=== PATIENT | male | born 1995 | race Two or more races ===

== ENCOUNTER 2024-03-30 17:48 | Emergency (ER) | payer MEDICAID, SELFPAY ==
[2024-03-30 17:54] VITALS: BP 128/89; PULSE 98; TEMP 36.5; O2SAT 99; BMI 36.0
--- NOTE | 2024-03-30 18:13 | ED.EYEPROB1 ---
HPI - Eye Problem General Chief complaint: Eye Problems Stated complaint: Eye problem Time Seen by Provider: 03/30/24 17:55 Source: patient Mode of arrival: walk-in History of Present Illness HPI Narrative: Patient is a 28-year-old male who presents to the emergency department to be evaluated for a spot on the conjunctive of his right eye. He states the spot has been there for a year. He has no visual changes or pain. No swelling. No drainage. He came in to be evaluated because his girlfriend is also being evaluated for unrelated complaints and she wanted him to have it looked at in case it was cancer of the eyeball. Related Data Allergies Allergy/AdvReac Type Severity Reaction Status Date / Time No Known Drug Allergies Allergy Verified 03/30/24 17:54 Review of Systems ROS Constitutional Denies: fever or chills Eyes Denies: change in vision Ears, nose, mouth, and throat Denies: throat pain or nasal congestion Cardiovascular Denies: chest pain Respiratory Denies: shortness of breath or cough Gastrointestinal Denies: nausea or vomiting Neurological Denies: headache, numbness in extremities or weakness in extremities Exam Narrative Exam Narrative: Gen.: Awake, alert, in no distress Head: Normocephalic, atraumatic ENT: Moist mucous membranes, right eye with 3 mm brown discoloration to the conjunctiva. No redness, mass, drainage or crusting. No extension of the area to the iris or pupil Respiratory: No respiratory distress Extremities: Moves extremities equally Psych: Normal mood and affect Neuro: No focal neuro deficit Skin: Warm, dry, intact Constitutional Vital Signs, click to edit/add: Last Vital Signs Temp 97.7 F 03/30/24 17:54 Pulse 98 H 03/30/24 17:54 Resp 16 03/30/24 17:54 BP 128/89 03/30/24 17:54 Pulse Ox 99 03/30/24 17:54 Course Vital Signs Vital signs: Vital Signs Temperature 97.7 F 03/30/24 17:54 Pulse Rate 98 H 03/30/24 17:54 Respiratory Rate 16 03/30/24 17:54 Blood Pressure 128/89 03/30/24 17:54 Pulse Oximetry 99 03/30/24 17:54 Temperature 97.7 F 03/30/24 17:54 Pulse Rate 98 H 07/31/24 17:54 Respiratory Rate 16 03/30/24 17:54 Blood Pressure 128/89 03/30/24 17:54 Pulse Oximetry 99 03/30/24 17:54 MDM - Eye Problem MDM Narrative Medical decision making narrative: Exam is consistent with nevus of the right conjunctiva. Follow-up with optometry and return to the ER if symptoms change or worsen. SUPERVISED APC VISIT, PHYSICIAN ATTESTATION: Based on the medical record the care appears appropriate. ? Medical Records Attestation: I reviewed the patient's medical records. Discharge Plan Discharge Stand Alone Forms: Portal Instructions Chief Complaint: Eye Problems Clinical Impression: Nevus of right conjunctiva Patient Disposition: Home, Self-Care Time of Disposition Decision: 18:12 Condition: Good Print Language: Macedonian Referrals: FORREST ROSA [Physician] - 1 week Physician,Non-Staff, MD [Primary Care Provider] - 1 week
== END 2024-03-30 18:26 | disposition home or self-care (01) ==
PROVIDERS: Emergency Provider Student in an Organized Health Care Education/Training Program
DX: D31.01 Benign neoplasm of right conjunctiva (principal)
CPT/HCPCS: 99281

== ENCOUNTER 2024-07-27 16:56 | Emergency (ER) | payer MEDICAID, SELFPAY ==
[2024-07-27 17:01] VITALS: BP 156/88; PULSE 87; TEMP 36.7; O2SAT 97; BMI 37.1
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
--- NOTE | 2024-07-27 17:26 | ED_ITS ---
HPI - Male Genitourinary General Chief complaint: Urogenital-Male Stated complaint: std testing Time Seen by Provider: 07/27/24 16:57 Source: patient Mode of arrival: walk-in History of Present Illness HPI Narrative: 28-year-old male presents to the emergency department for concern of an STD. His girlfriend apparently has trichomonas and she is being treated. He has no symptoms at all. No dysuria or drainage. No genital area skin lesions. Related Data Previous Rx's ?Medication ?Instructions ?Recorded metronidazole 250 mg tablet 250 mg PO TID 7 days #21 tabs 07/27/24 Allergies Allergy/AdvReac Type Severity Reaction Status Date / Time No Known Drug Allergies Allergy Verified 03/30/24 17:54 Review of Systems ROS Narrative A ten point review of systems is negative except as noted above. Exam Narrative Exam Narrative: Nurses note and vital signs reviewed and patient is not hypoxic. General: The patient appears well and in no apparent distress. Patient is resting comfortably on cart. Skin: Warm, dry, no pallor noted. There is no rash noted. Head: Normocephalic, atraumatic Eye: Normal conjunctiva, no drainage Ears, Nose, Mouth, and Throat: oral mucosa is moist. Nares patent. Cardiovascular: Regular Rate and Rhythm Respiratory: Patient is in no distress, no accessory muscle use, lungs are clear to auscultation, no wheezing, rales or rhonchi Back: non-tender GI: Soft and nontender Musculoskeletal: No joint swelling Neurological: A&O, normal speech Psychiatric: Cooperative Constitutional Vital Signs, click to edit/add: Last Vital Signs Temp 98.1 F 07/27/24 17:01 Pulse 87 07/27/24 17:01 Resp 16 07/27/24 17:01 BP 156/88 H 07/27/24 17:01 Pulse Ox 97 07/27/24 17:01 O2 Del Method Room Air 07/27/24 17:01 Course Vital Signs Vital signs: Vital Signs Temperature 98.1 F 07/27/24 17:01 Pulse Rate 87 07/27/24 17:01 Respiratory Rate 16 07/27/24 17:01 Blood Pressure 156/88 H 07/27/24 17:01 Pulse Oximetry 97 07/27/24 17:01 Oxygen Delivery Method Room Air 07/27/24 17:01 Temperature 98.1 F 07/27/24 17:01 Pulse Rate 87 07/27/24 17:01 Respiratory Rate 16 07/27/24 17:01 Blood Pressure 156/88 H 07/27/24 17:01 Pulse Oximetry 97 07/27/24 17:01 Oxygen Delivery Method Room Air 07/27/24 17:01 MDM - Male Genitourinary MDM Narrative Medical decision making narrative: Uri probes are ordered and pending. He was given a prescription for Flagyl. Treatment diagnosis and follow-up were discussed with the patient Differential Diagnosis Differential diagnosis: Likely urethritis Discharge Plan Discharge Chief Complaint: Urogenital-Male Clinical Impression: Concern about STD in male without diagnosis Patient Disposition: Home, Self-Care Time of Disposition Decision: 17:10 Condition: Good Mode of Transportation: Private Vehicle Prescriptions / Home Meds: New metronidazole 250 mg tablet 250 mg PO TID 7 Days Qty: 21 0RF Print Language: Greek Instructions: Sexually Transmitted Diseases (ED) Referrals: Physician,Non-Staff, MD [Primary Care Provider] - 1 week
[2024-08-01 16:09] LABS: Neisseria gonorrhoeae, NAA Negative (Negative)
== END 2024-07-27 17:48 | disposition home or self-care (01) ==
PROVIDERS: Emergency Provider Emergency Medicine
DX: Z20.2 Contact with and (suspected) exposure to infections with a predominantly sexual mode of transmission (principal)
CPT/HCPCS: 87491; 87591; 99283

== ENCOUNTER 2024-08-14 09:45 | Emergency (ER) | payer MEDICAID, SELFPAY ==
[2024-08-14 09:51] VITALS: BP 130/85; PULSE 91; TEMP 36.6; O2SAT 98; BMI 37.1
--- OUTSIDE RECORDS SUMMARY | 2024-08-14 09:52 | XMS_ITS | CCD ---
Author Organization [facility] Care Team Providers Care Meter Setter Name Role Phone REQUEST, NONE LISTED Primary [...] Name Value Interpretation Reference Range Facil ity Correction Documentson 11-20-2021 Correction Documents [id number] CD:127 Normal [facility] Correction Documentson 10-14-2021 Correction Documents Correction Nurse Visit 14 day Health Appraisal Date [...] forearm Date vial opened: 09/22/2021 Lot number: [id number] Expiration date: 12/20/2022 PPD Comments: _ Inmate [...] you wish to attend AA Meetings? YES Correction Assessment 09/28/21 14:28:00 Correction Assessment Entered On: 09/29/2021 14:31 EST Performed [...] Yes Patient Reported Covid-19 Testing Where : [facility] Patient Reported Covid-19 Testing When : [...] : Gabriel (more content not included)... Normal [facility] Correction Documentson 07-03-2021 Correction Documents Correction Nurse Visit 14 day Health Appraisal PPD Results PPD Result (mm of Induration): _0.0 mm Read on: 06/28/2021 Problem List/Past Medical History Ongoing No qualifying data Historical No qualifying data Medications No active medications Allergies No Known Allergies Normal [facility] Correction Documentson 06-28-2021 Correction Documents Correction Nurse Visit 14 day Health Appraisal Date [...] forearm Date vial opened: 06/18/2021 Lot number: [id number] Expiration date: 10/22 PPD Comments: _ Inmate [...] you wish to attend AA Meetings? Yes Correction Assessment 06/26/21 16:48:00 Correction Assessment Entered On: 06/26/2021 16:52 EDT Performed [...] active medications Allergies No Known Allergies Normal [facility] Encounters Encounter Date Encounter Type Care Provider Facility Start: 07-31-2019 End: 08-01-2019 Patient encounter procedure FORREST ABRAHAM Facility: Payers Date Payer Category Payer Unknown [id number] 1958 Self-pay Summary Purpose Family History No Family History Records FoundNo Family History Records Found Advance Directives No Advanced Directives Records FoundNo Advanced Directives Records Found Additional Source Comments (unrecognized sect ion and content) No Status Records FoundNo Status Records Found INFORMATION SOURCE (unrecogn ized section and content) DATE CREATED AUTHOR 08/05/2019 [facility] DATE CREATED AUTHOR AUTHOR'S JUAN HEDRICK 11/21/2021 [facility] FOR RECORDS PERTAINING TO PATIENTS WHO [...] BE BASED ON THE PRIMARY CLINICAL RECORDS. [employer] [facility]. provides no warranty or guarantee of the accuracy or completeness of information in this document.
[2024-08-14 10:08] LABS: Influenza Virus A Antigen Negative; Influenza Virus B Antigen Negative; Internal Control Within Normal Limits
[2024-08-14 10:09] LABS: Internal Control Within Normal Limits; SARS-CoV-2 Ag NEGATIVE (NEGATIVE); Strep A Antigen Screen Negative
--- NOTE | 2024-08-14 10:32 | XR_ITS ---
The [address] [address] Patient Name: TRAVIS COPELAND MRN: [id number] date: 1995 Sex: M Assigned Patient Location: ER Current Patient Location: ER Accession/Order Number: [id number] Exam Date: 08/14/2024 10:38 Report Date: 08/14/2024 10:52 At the request of: JASBIR ALLEN Procedure: XR chest 2V EXAMINATION: XR chest 2V HISTORY: cough COMPARISON: No relevant comparison available. TECHNIQUE: PA and lateral FINDINGS: LUNGS: No significant pulmonary parenchymal abnormalities. VASCULATURE: No increased pulmonary vasculature. PLEURA: No pneumothorax, effusion, or pleural thickening. CARDIAC: No cardiomegaly or cardiac silhouette abnormality. MEDIASTINUM: No visible mass or adenopathy. BONES: No fracture or visible bone lesion. OTHER: Negative. XR/XR chest 2V IMPRESSION: No acute cardiopulmonary process Electronically authenticated by: ABDELRAHMAN RETANA Date: 08/14/2024 10:52
--- NOTE | 2024-08-14 12:21 | ED_ITS ---
HPI HPI - General Adult General Chief complaint: Upper Respiratory Infection Stated complaint: RUNNY NOSE, COUGH, SORE THROAT Time Seen by Provider: 08/14/24 10:24 Source: patient Mode of arrival: walk-in Limitations: no limitations History of Present Illness HPI narrative: 28-year-old male to the emergency department chief complaint of cough, nasal congestion, sore throat. He is requesting a chest x-ray. Patient is here with another family member with similar symptoms. They recently got over pneumonia. Related Data Previous Rx's ?Medication ?Instructions ?Recorded cbfdctlqpcfmfkn-gfccgnfbchwmthp-PA 5 ml PO Q4H PRN cold symptoms #118 08/14/24 2 mg-30 mg-10 mg/5 mL oral syrup mL (Bromfed DM) Allergies Allergy/AdvReac Type Severity Reaction Status Date / Time No Known Drug Allergies Allergy Verified 03/30/24 17:54 Opioid HPI Opioid Management Most Recent Opioid Data: No Data to Display Review of Systems ROS Status of ROS 10 or more systems reviewed and unremark able except as noted in history and below Exam Narrative Exam Narrative: VITALS: I have reviewed the triage vital signs. GENERAL: Well developed, well appearing adult in no acute distress. NEURO: Alert and oriented. Moves all extremities. Face is symmetric and expressive. EYES: PERRL. No scleral icterus or conjunctival injection. No discharge. HENT: Normocephalic, atraumatic. Hearing is grossly intact. Nares grossly patent and without discharge. Mucous membranes moist. TMs clear bilaterally. Uvula midline. No unilateral peritonsillar swelling. NECK: No JVD. Patient moves neck without restriction. CARDIO: Rhythm regular. Normal rate. No murmur, rub, or gallop. Pulses equal bilaterally in the upper and lower extremity. No lower extremity edema. PULM: Lungs clear to auscultation in all delarosa. No wheezes, rales, or rhonchi. No conversational dyspnea. No splinting, stridor, or accessory muscle use. GI/: Abdomen is soft and non-tender. Normoactive bowel sounds. EXTREMITIES: Symmetric muscle bulk. No joint swelling. No clubbing, cyanosis, or deformity. SKIN: Warm and dry. Normal turgor. No rash or lesions appreciated. PSYCH: Mood, affect, and interaction is appropriate to the setting. Constitutional Vital Signs, click to edit/add: Last Vital Signs Temp 97.8 F 08/14/24 09:51 Pulse 91 H 08/14/24 09:51 Resp 18 08/14/24 09:51 BP 130/85 08/14/24 09:51 Pulse Ox 98 08/14/24 09:51 O2 Del Method Room Air 08/14/24 09:51 Course Vital Signs Vital signs: Vital Signs Temperature 97.8 F 08/14/24 09:51 Pulse Rate 91 H 08/14/24 09:51 Respiratory Rate 18 08/14/24 09:51 Blood Pressure 130/85 08/14/24 09:51 Pulse Oximetry 98 08/14/24 09:51 Oxygen Delivery Method Room Air 08/14/24 09:51 Temperature 97.8 F 08/14/24 09:51 Pulse Rate 91 H 08/14/24 09:51 Respiratory Rate 18 08/14/24 09:51 Blood Pressure 130/85 08/14/24 09:51 Pulse Oximetry 98 08/14/24 09:51 Oxygen Delivery Method Room Air 08/14/24 09:51 Medical Decision Making MDM Narrative Medical decision making narrative: Well-appearing 28-year-old male with viral URI by history and exam. Chest x-ray without acute findings. Return precautions were discussed. Bromfed was prescribed. Patient was discharged home Medical Records Medical records reviewed: Yes I reviewed the patient's medical records Lab Data Lab results reviewed: Yes I reviewed the patient's lab results Labs: Lab Results 08/14/24 Range/Units 09:55 Influenza Type A Ag Negative Influenza Type B Ag Negative SARS-CoV-2 Ag (CV2AG) Negative (NEGATIVE) Streptococcus Screen Negative Imaging Data Chest x-ray: Attestation: I have reviewed the pertinent imaging results. Radiologist's impression: ITS Impressions Chest X-Ray 08/14/24 10:32 IMPRESSION: No acute cardiopulmonary process Electronically authenticated by: ABDELRAHMAN RETANA Date: 08/14/2024 10:52 Discharge Plan Discharge Chief Complaint: Upper Respiratory Infection Clinical Impression: Upper respiratory infection Patient Disposition: Home, Self-Care Time of Disposition Decision: 11:03 Condition: Good Mode of Transportation: Private Vehicle Prescriptions / Home Meds: New cckwsixiheeywwf-dntnirqyq-KI [Bromfed DM] 2-30-10 mg/5 mL syrup 5 ml PO Q4H PRN (Reason: cold symptoms) Qty: 118 0RF Print Language: Greenlandic Instructions: Upper Respiratory Infection (ED) Additional Instructions: Call the office of your primary care doctor to arrange for follow-up within the above-stated timeframe. Your ED visit was focused on your acute issue and does not replace primary care. You should review your labs, imaging, and diagnoses from this ED visit with your primary care physician. There may be non-emergent/ incidental findings that need further evaluation. You should review your vital signs including blood pressure with your PCP. If you were prescribed medications you should discuss possible side-effects and drug interactions with your pharmacist. Call 911 or go to the nearest Emergency Department if you develop any new or worsening symptoms. Seek immediate medical attention if you develop: worsening shortness of breath, difficulty breathing, chest pain, nausea, vomiting, weakness, numbness, tingling, excessive sweating, loss of motion in your arms or legs, or any new or worsening symptoms. Referrals: Physician,Non-Staff, MD [Primary Care Provider] - 1 week Discharge Date/Time: 08/14/24 11:20
== END 2024-08-14 11:20 | disposition home or self-care (01) ==
PROVIDERS: Emergency Provider Student in an Organized Health Care Education/Training Program
DX: J06.9 Acute upper respiratory infection, unspecified (principal)
CPT/HCPCS: 71046; 87070; 87804; 87811; 87880; 99284

== ENCOUNTER 2024-10-14 10:36 | Emergency (ER) | payer MEDICAID, SELFPAY ==
[2024-10-14 10:40] VITALS: BP 121/84; PULSE 107; TEMP 36.8; O2SAT 98; BMI 37.1
--- NOTE | 2024-10-14 10:42 | XR_ITS ---
The [address] [address] Patient Name: TRAVIS COPELAND MRN: [id number] date: 1995 Sex: M Assigned Patient Location: ER Current Patient Location: Accession/Order Number: [id number] Exam Date: 10/14/2024 10:50 Report Date: 10/14/2024 11:08 At the request of: MIRIAM CHANDRA Procedure: XR elbow RT min 3V PROCEDURE: XR elbow RT min 3V HISTORY: pain COMPARISON: None. FINDINGS: BONES:No fracture, acute abnormality, or significant arthropathy. SOFT TISSUES:No visible soft tissue swelling. EFFUSION:None visible. OTHER: Negative. XR/XR elbow RT min 3V IMPRESSION: 1. No acute bone abnormality or appreciable degenerative changes. 2. No joint effusion. Electronically authenticated by: TERRENCE JENKINS Date: 10/14/2024 11:08
--- OUTSIDE RECORDS SUMMARY | 2024-10-14 10:56 | XMS_ITS | CCD ---
Author Organization [facility] Care Team Providers Care Filling Station Laborer Name Role Phone REQUEST, NONE LISTED Primary [...] Name Value Interpretation Reference Range Facil ity Custodial Documentson 11-20-2021 Custodial Documents [id number] CD:127 Normal [facility] Custodial Documentson 10-14-2021 Custodial Documents Custodial Nurse Visit 14 day Health Appraisal Date [...] forearm Date vial opened: 09/22/2021 Lot number: [id number] Expiration date: 12/20/2022 PPD Comments: _ Inmate [...] you wish to attend AA Meetings? YES Custodial Assessment 09/28/21 14:28:00 Custodial Assessment Entered On: 09/29/2021 14:31 EST Performed [...] Yes Patient Reported Covid-19 Testing Where : [facility] Patient Reported Covid-19 Testing When : [...] : Gabriel (more content not included)... Normal [facility] Custodial Documentson 07-03-2021 Custodial Documents Custodial Nurse Visit 14 day Health Appraisal PPD Results PPD Result (mm of Induration): _0.0 mm Read on: 06/28/2021 Problem List/Past Medical History Ongoing No qualifying data Historical No qualifying data Medications No active medications Allergies No Known Allergies Normal [facility] Custodial Documentson 06-28-2021 Custodial Documents Custodial Nurse Visit 14 day Health Appraisal Date [...] forearm Date vial opened: 06/18/2021 Lot number: [id number] Expiration date: 10/22 PPD Comments: _ Inmate [...] you wish to attend AA Meetings? Yes Custodial Assessment 06/26/21 16:48:00 Custodial Assessment Entered On: 06/26/2021 16:52 EDT Performed [...] active medications Allergies No Known Allergies Normal [facility] Encounters Encounter Date Encounter Type Care Provider Facility Start: 07-31-2019 End: 08-01-2019 Patient encounter procedure FORREST ABRAHAM Facility: Payers Date Payer Category Payer Unknown [id number] 1958 Self-pay Summary Purpose Family History No Family History Records FoundNo Family History Records Found Advance Directives No Advanced Directives Records FoundNo Advanced Directives Records Found Additional Source Comments (unrecognized sect ion and content) No Status Records FoundNo Status Records Found INFORMATION SOURCE (unrecogn ized section and content) DATE CREATED AUTHOR 08/05/2019 The Lucy marrero DATE CREATED AUTHOR AUTHOR'S JUAN HEDRICK 11/21/2021 [facility] FOR RECORDS PERTAINING TO PATIENTS WHO [...] BE BASED ON THE PRIMARY CLINICAL RECORDS. [employer] [facility]. provides no warranty or guarantee of the accuracy or completeness of information in this document.
--- NOTE | 2024-10-14 11:07 | ED.GENADUL1 ---
HPI HPI - General Adult General Chief complaint: Extremity Injury, Upper Stated complaint: UPPER EXTREMITY PAIN - RIGHT ELBOW Time Seen by Provider: 10/14/24 11:05 Mode of arrival: walk-in History of Present Illness HPI narrative: Patient is a 28-year-old male who is presenting to the ER after injuring his right elbow over a month ago after he was pulling a heavy object. Patient is having pain to the lateral aspect of his right elbow for the past month. Patient is here with his and son, so patient checked into be evaluated as well. Patient has not seen a PCP orthopedic surgeon for this. Patient is right-hand dominant. All systems are negative except as noted/marked. All systems reviewed and otherwise negative. Nurses note and vital signs reviewed and patient is not hypoxic. General: The patient appears well and in no apparent distress. Patient is resting comfortably on cart. Patient is not toxic, lethargic, or listless Skin: Warm, dry, no pallor noted. There is no rash noted. No petechiae, purpura. Head: Normocephalic, atraumatic Eye: Normal conjunctiva, no drainage, EOMI. PERRL Ears, Nose, Mouth, and Throat: oral mucosa is moist. Nares patent. Mouth without vesicles. Cardiovascular: Regular Rate and Rhythm, no murmur, gallop, rub Respiratory: Patient is in no distress, no accessory muscle use, lungs are clear to auscultation, no wheezing, rales or rhonchi Musculoskeletal: Patient has full range of motion of all of the extremities. Patient has mild tenderness to palpation to the right lateral epicondyle. No tenderness to palpation to the right medial epicondyle. Patient has mild to moderate pain with pronation of the right elbow over the right lateral epicondyle. No swelling, no ecchymosis. No signs of hemarthrosis. Patient has no tenderness to palpation to the right shoulder, right wrist or hand, full range of motion of right shoulder, wrist and hand with no difficulty. no other motor, sensory, or focal neurological deficits Neurological: A&O x4, normal speech Psychiatric: Cooperative Related Data Home Medications ?Medication ?Instructions ?Recorded ?Confirmed No Known Home Medications 10/14/24 10/14/24 Allergies Allergy/AdvReac Type Severity Reaction Status Date / Time No Known Drug Allergies Allergy Verified 03/30/24 17:54 Opioid HPI Opioid Management Most Recent Opioid Data: No Data to Display PFSH PFS Social History Little interest or pleasure in doing things: not at all Feeling down, depressed, or hopeless: not at all Exam Constitutional Vital Signs, click to edit/add: Last Vital Signs Temp 98.2 F 10/14/24 10:40 Pulse 107 H 10/14/24 10:40 Resp 18 10/14/24 10:40 BP 121/84 10/14/24 10:40 Pulse Ox 98 10/14/24 10:40 Course Vital Signs Vital signs: Vital Signs Temperature 98.2 F 10/14/24 10:40 Pulse Rate 107 H 10/14/24 10:40 Respiratory Rate 18 10/14/24 10:40 Blood Pressure 121/84 10/14/24 10:40 Pulse Oximetry 98 10/14/24 10:40 Temperature 98.2 F 10/14/24 10:40 Pulse Rate 107 H 10/14/24 10:40 Respiratory Rate 18 10/14/24 10:40 Blood Pressure 121/84 10/14/24 10:40 Pulse Oximetry 98 10/14/24 10:40 Medical Decision Making MDM Narrative Medical decision making narrative: X-ray shows no acute abnormalities. Patient has evidence of right lateral epicondylitis. Education on ice, anti-inflammatories and following up and establishing a PCP and then following up with orthopedic surgeon if needed. Education on buying ogja-tek-zfpwqlx bands or braces to help with right tennis elbow was discussed with patient. Using anti-inflammatories and ice was discussed. Patient currently not working. Discharge Plan Discharge Chief Complaint: Extremity Injury, Upper Clinical Impression: Right elbow tendonitis, Epicondylitis, lateral, right Patient Disposition: Home, Self-Care Time of Disposition Decision: 12:02 Condition: Fair Prescriptions / Home Meds: No Action No Known Home Medications Print Language: Algerian Instructions: Tennis Elbow (ED), Elbow Sprain (ED), P.R.I.C.E. Treatment (ED) Additional Instructions: Alternate Tylenol and either Motrin, Advil, or ibuprofen every 4 hours to help with pain. Maximum dose of Tylenol is 3000 mg a day. Maximum dose of either Motrin, Advil, or ibuprofen is 2400 mg a day. Use ice 20 minutes on, 20 minutes off. Use a zdsm-sgl-ebclatp tennis elbow band to help with pain. Use this for the next 1 to 2 weeks. Ask pharmacist for help Referrals: Physician,Non-Staff, [Primary Care Provider] - 1 week Terrance Werner MD [Physician] - 1 week Discharge Date/Time: 10/14/24 12:27
== END 2024-10-14 12:27 | disposition home or self-care (01) ==
PROVIDERS: Emergency Provider Emergency Medicine
DX: M77.11 Lateral epicondylitis, right elbow (principal)
CPT/HCPCS: 73080; 99283

== ENCOUNTER 2025-02-17 12:10 | Emergency (ER) | payer MEDICAID, SELFPAY ==
--- OUTSIDE RECORDS SUMMARY | 2025-02-17 12:20 | XMS_ITS | CCD ---
Author Organization [facility] Care Team Providers Care Filenet Architect Name Role Phone REQUEST, NONE LISTED Primary [...] Facil ity Fdc Documentson 11-20-2021 Fdc Documents [id number] CD:127 Normal [facility] Fdc Documentson 10-14-2021 Fdc Documents Fdc [...] forearm Date vial opened: 09/22/2021 Lot number: [id number] Expiration date: 12/20/2022 PPD Comments: _ Inmate [...] Yes Patient Reported Covid-19 Testing Where : [facility] Patient Reported Covid-19 Testing When : [...] : None Cognition: Mood and Affect : Gabirel (more content not included)... Normal [facility] Fdc Documentson 07-03-2021 Fdc Documents Fdc Nurse Visit 14 day Health Appraisal PPD Results PPD Result (mm of Induration): _0.0 mm Read on: 06/28/2021 Problem List/Past Medical History Ongoing No qualifying data Historical No qualifying data Medications No active medications Allergies No Known Allergies Normal [facility] Fdc Documentson 06-28-2021 Fdc Documents Fdc [...] forearm Date vial opened: 06/18/2021 Lot number: [id number] Expiration date: 10/22 PPD Comments: _ Inmate [...] active medications Allergies No Known Allergies Normal [facility] Encounters Encounter Date Encounter Type Care Provider Facility Start: 07-31-2019 End: 08-01-2019 Patient encounter procedure FORREST ABRAHAM Facility: Payers Date Payer Category Payer Unknown [id number] 1958 Self-pay Summary Purpose Family History No Family History Records FoundNo Family History Records Found Advance Directives No Advanced Directives Records FoundNo Advanced Directives Records Found Additional Source Comments (unrecognized sect ion and content) No Status Records FoundNo Status Records Found INFORMATION SOURCE (unrecogn ized section and content) DATE CREATED AUTHOR 08/05/2019 The [facility] DATE CREATED AUTHOR AUTHOR'S JUAN HEDRICK 11/21/2021 [facility] FOR RECORDS PERTAINING TO PATIENTS WHO ARE [...] BE BASED ON THE PRIMARY CLINICAL RECORDS. [facility]. provides no warranty or guarantee of the accuracy or completeness of information in this document.
[2025-02-17 12:37] VITALS: BP 128/81; PULSE 86; TEMP 36.6; O2SAT 100; BMI 37.1
[2025-02-17] MEDS: ADACEL DIPH,PERTUSS(ACELL),TET VAC/PF 0.5 ML ADULT SYRINGE IM (14:06)
--- NOTE | 2025-02-17 18:27 | ED.WOUNDLAC1 ---
HPI - Wound/Laceration General Chief Complaint: Wound/Laceration Stated Complaint: LOWER EXTREMITY PAIN/LACERATION ON TOE Time Seen by Provider: 02/17/25 12:58 Source: patient Mode of arrival: walk-in Limitations: no limitations History of Present Illness HPI narrative: The patient is coming to the ER with a wound to the tip of the left great toe that he sustained few days ago and he is worried about infection, the patient tetanus status is not up-to-date He had no fever no chills no other complaint he had no discharge and he mentioned that he had a contusion of his barefoot with the metal at home Related Data Previous Rx's ?Medication ?Instructions ?Recorded cephalexin 500 mg capsule 500 mg PO Q8H 7 days #21 caps 02/17/25 Allergies Allergy/AdvReac Type Severity Reaction Status Date / Time No Known Drug Allergies Allergy Verified 02/17/25 12:37 Review of Systems ROS Status of ROS 10 or more systems reviewed and unremarkable except as noted in history and below PFSH PFSH Social History Little interest or pleasure in doing things: not at all Feeling down, depressed, or hopeless: not at all Exam Narrative Exam Narrative: Nurses notes and vital signs reviewed and patient is not hypoxic. General: Well-appearing and in no apparent distress. Skin: Warm, dry, no pallor noted. No rash. Head: Normocephalic, atraumatic. Neck: Supple, non-tender. Left foot exam: The patient have a almost half a centimeter healing wound to the tip of the big toe on the left side there is no signs of acute infection I could not appreciate the depth of the wound because it is healing and approximated well The patient have no serous discharge and the nail bed is intact with no hematoma Constitutional Vital Signs, click to edit/add: Last Vital Signs Temp 97.9 F 02/17/25 12:37 Pulse 86 02/17/25 12:37 Resp 18 02/17/25 12:37 BP 128/81 02/17/25 12:37 Pulse Ox 100 02/17/25 12:37 O2 Del Method Room Air 02/17/25 12:37 Course Vital Signs Vital signs: Vital Signs Temperature 97.9 F 02/17/25 12:37 Pulse Rate 86 02/17/25 12:37 Respiratory Rate 18 02/17/25 12:37 Blood Pressure 128/81 02/17/25 12:37 Pulse Oximetry 100 02/17/25 12:37 Oxygen Delivery Method Room Air 02/17/25 12:37 Temperature 97.9 F 02/17/25 12:37 Pulse Rate 86 02/17/25 12:37 Respiratory Rate 18 02/17/25 12:37 Blood Pressure 128/81 02/17/25 12:37 Pulse Oximetry 100 02/17/25 12:37 Oxygen Delivery Method Room Air 02/17/25 12:37 MDM - Wound/Laceration MDM Narrative Medical decision making narrative: The patient was provided tetanus booster Keflex as a prophylaxis for infection control And the patient also had a postop shoe was provided The patient is to follow up with primary care physician in next 2-3 days or to return to the emergency department should any of the signs or symptoms worsen or new symptoms develop. The patient agrees with the following Diagnosis and Treatment plan and the patient will be discharged home. Discharge Plan Discharge Chief Complaint: Wound/Laceration Clinical Impression: Visit for wound care, Contusion of toe Patient Disposition: Home, Self-Care Time of Disposition Decision: 14:02 Condition: Good Mode of Transportation: Private Vehicle Prescriptions / Home Meds: New cephalexin 500 mg capsule 500 mg PO Q8H 7 Days Qty: 21 0RF Print Language: Djiboutian Instructions: Acute Wounds (DC) Referrals: Physician,Non-Staff, MD [Primary Care Provider] - 1 week Discharge Date/Time: 02/17/25 14:13
== END 2025-02-17 14:13 | disposition home or self-care (01) ==
PROVIDERS: Emergency Provider Emergency Medicine
DX: S91.112A Laceration without foreign body of left great toe without damage to nail, initial encounter (principal); Z23 Encounter for immunization
CPT/HCPCS: 90471; 90715; 99284

== ENCOUNTER 2025-05-15 12:22 | Emergency (ER) | payer MEDICAID, SELFPAY ==
--- OUTSIDE RECORDS SUMMARY | 2025-05-15 11:03 | XMS_ITS | Encounter Summary ---
Author Organization [facility] [employer] [facility] tem Address [facility] [id number] [address] [place] [address] Care Team Providers Care Social Services Designee Name Role Phone Unavailable Primary Care Provider Unavailabl e Reason for Visit * Reason Comments Cough Pt stated he has bee n coughing since Thursday and has had diarrhea since last Thursday Encounter Details Date Type Department Care Team (Late st Contact Info) Description 05/15/2025 11:03 AM EDT Emergency [facility] - Emergency [address] [place] [id number] Social History Tobacco Use Types Packs/Day Years Used Date Smoking Tobacco: Never Assessed Childcare Answer Date Recorded Childcare Unknown 02/09/2019 Employment Answer Date Recorded Employment Unknown 02/09/2019 Hunger Screening Answer Date Recorded Within the past 12 months we worried whether our food would run out before we got money to buy more. Never True 05/15/2025 Within the past 12 months th e food we bought just didn't last and we didn't have money to get more. Never True 05/15/2025 Sex and Gender Information Value Date Recorded Sex Assigned at Not on file Legal Sex Male 12:06 PM EDT Gender Identity Not on file Sexual Orientation Not on file documented as of this encounter Last Filed Vital Signs Vital Sign Reading Time Taken Comments Blood Pressure 123/75 05/15/2025 11:37 AM EDT Pulse 96 05/15/2025 11:37 AM EDT Temperature 36.7 C (98.1 F) 05/15/2025 11:37 AM EDT Respiratory Rate 20 05/15/2025 11:37 AM EDT Oxygen Saturation 100% 05/15/2025 11:37 AM EDT Inhaled Oxygen Concentration - - Weight 108.9 kg (240 lb) 05/15/2025 11:37 AM EDT Height 167.6 cm (5' 6 ) 05/15/2025 11:37 AM EDT Body Mass Index 38.74 05/15/2025 11:37 AM EDT documented in this encounter Plan of Treatment Not on file documented as of this encounter Visit Diagnoses Not on filedocumented in this encounter
[2025-05-15 12:27] VITALS: BP 109/69; PULSE 98; TEMP 36.4; O2SAT 98; BMI 38.7
--- OUTSIDE RECORDS SUMMARY | 2025-05-15 12:35 | XMS_ITS | Clinical Summary ---
Author Organization [facility] [employer] [facility] Address [id number] [address] [place] [address] Care Team Providers Care Four H Agent Name Role Phone Unavailable Primary Care Provider Unavailabl e Allergies No known active allergies Medications No known medications Encounters Date Type Department Care Team Description 05/15/2025 11:03 AM EDT Emergency [facility] - Emergency [address] [place] [id number] 05/15/2025 Travel from Last 3 Months Social History Tobacco Use Types Packs/Day Years [...] on file Sexual Orientation Not on file Last Filed Vital Signs Vital Sign Reading [...] Mass Index 38.74 05/15/2025 11:37 AM EDT Plan of Treatment Not on file Medical Devices Not on file
--- OUTSIDE RECORDS SUMMARY | 2025-05-15 12:35 | XMS_ITS | Encounter Summary ---
Author Organization [employer] [facility] tem Address [id number] [address] [place] [address] Care Team Providers Care Wind Farm Operations Manager Name Role Phone Unavailable Primary Care Provider Unavailabl e Encounter Details Date Type Department Care Team (Latest Contact Info) Description 05/15/2025 Travel Social History Tobacco Use Types Packs/Day Years [...] on file documented as of this encounter Plan of Treatment Not on file documented as of this encounter Visit Diagnoses Not on filedocumented in this encounter
--- NOTE | 2025-05-15 13:04 | ED_ITS ---
HPI - URI/Sore Throat General Chief Complaint: Nausea/Vomiting/Diarrhea Stated Complaint: COUGHING, DIARRHEA, CHILLS, FEVER Time Seen by Provider: 05/15/25 12:35 Source: patient History of Present Illness HPI Narrative: 29-year-old male presents to the ED with cough, sinus congestion, and green nasal discharge for approximately 10 days. Reports frontal headache, worse when bending forward. Denies sore throat, chest pain, shortness of breath, or abdo rivera pain. He has experienced diarrhea for the past 2 days, without blood or black stools, and had one episode of vomiting last Thursday after taking DayQuil. He reports exposure to individuals with upper respiratory infections, including COVID-19. Afebrile and otherwise feels well. He declines chest X-ray and COVID/flu testing due to time constraints. Requests a work note. Related Data Previous Rx's ?Medication ?Instructions ?Recorded amoxicillin 875 mg tablet 875 mg PO BID #20 tabs 05/15 cqszduphxgjppbb-suqnsetjieujfsi-EC 5 ml PO Q6H PRN cou gh #100 mL 05/15/25 2 mg-30 mg-10 mg/5 mL oral syrup (Bromfed DM) ondansetron 4 mg disintegrating 4 mg PO Q4H PRN nausea and 05/15/25 tablet vomiting #14 tabs Allergies Allergy/AdvReac Type Severity Reaction Status Date / Time No Known Drug Allergies Allergy Verified 05/15/25 12:26 PFSH PFS Social History Little interest or pleasure in doing things: not at all Feeling down, depressed, or hopeless: not at all Exam Narrative Exam Narrative: * General: Alert, oriented, in no acute distress, resting comfortably * HEENT: * Nasal mucosa red and boggy, greenish discharge * Pharynx erythematous, no exudate * TMs normal * No cervical lymphadenopathy, no nuchal rigidity * Cardiac: Regular rate and rhythm * Lungs: Clear to auscultation bilaterally, no wheezes or rales * Abdomen: Soft, non-tender, normal bowel sounds * Skin/Neuro: Mentating at baseline, no acute abnormalities Constitutional Vital Signs, click to edit/add: Last Vital Signs Temp 97.6 F 05/15/25 12:27 Pulse 98 H 05/15/25 12:27 Resp 18 05/15/25 12:27 BP 109/69 05/15/25 12:27 Pulse Ox 98 05/15/25 12:27 O2 Del Method Room Air 05/15/25 12:27 Course Vital Signs Vital signs: Vital Signs Temperature 97.6 F 05/15/25 12:27 Pulse Rate 98 H 05/15/25 12:27 Respiratory Rate 18 05/15/25 12:27 Blood Pressure 109/69 05/15/25 12:27 Pulse Oximetry 98 05/15/25 12:27 Oxygen Delivery Method Room Air 05/15/25 12:27 Temperature 97.6 F 05/15/25 12:27 Pulse Rate 98 H 05/15/25 12:27 Respiratory Rate 18 05/15/25 12:27 Blood Pressure 109/69 05/15/25 12:27 Pulse Oximetry 98 05/15/25 12:27 Oxygen Delivery Method Room Air 05/15/25 12:27 MDM - URI/Sore Throat MDM Narrative Medical decision making narrative: 29-year-old male with >10 days of cough, sinus congestion, green nasal discharge, and frontal headache consistent with acute bacterial sinusitis. Shared decision-making discussed regarding further workup, including chest X-ray and COVID/flu testing; patient declined at this time. He also reports mild, self-limited diarrhea likely due to viral gastroenteritis given exposure to an ill contact; he is not dehydrated, and abdomen is soft and non-tender. Given symptom duration and exam findings, treatment with antibiotics for sinusitis is appropriate. Patient understands rationale for testing and possible missed diagnoses if testing is declined. Plan / Disposition: * Antibiotic: Treat acute bacterial sinusitis (prescribe appropriate antibiotic per guidelines) * Symptomatic care: Supportive measures for congestion, hydration, and rest * Diarrhea: Supportive care at home; monitor for dehydration or worsening symptoms * Follow-up: With PCP if symptoms persist, worsen, or if patient changes mind regarding testing * Return precautions: Fever, worsening headache, shortness of breath, severe diarrhea, blood in stool, or other concerning symptoms * Other: Provided work note per patient request * Patient is stable for discharge, understands plan, and is agreeable to treatment Differential Diagnosis Differential diagnosis: Likely upper respiratory infection, sinusitis, viral infection, influenza and pharyngitis Medical Records Attestation: I reviewed the patient's medical records. Discharge Plan Discharge Chief Complaint: Nausea/Vomiting/Diarrhea Clinical Impression: Sinusitis, acute, Diarrhea Patient Disposition: Home, Self-Care Time of Disposition Decision: 13:06 Condition: Good Prescriptions / Home Meds: New amoxicillin 875 mg tablet 875 mg PO BID Qty: 20 0RF gnzhliuthuveype-xtfrzpyoq-FS [Bromfed DM] 2-30-10 mg/5 mL syrup 5 ml PO Q6H PRN (Reason: cough) Qty: 100 0RF ondansetron 4 mg tablet,disintegrating 4 mg PO Q4H PRN (Reason: nausea and vomiting) Qty: 14 0RF Print Language: Honduran Instructions: Sinusitis (ED), Acute Diarrhea (ED) Referrals: Physician,Non-Staff, MD [Primary Care Provider] - 1 week Discharge Date/Time: 05/15/25 13:21
--- OUTSIDE RECORDS SUMMARY | 2025-05-15 15:20 | XMS_ITS | CCD ---
Author Organization [facility] Care Team Providers Care Neon Sign Worker Name Role Phone REQUEST, NONE LISTED Primary [...] Name Value Interpretation Reference Range Facil ity [facility] 11-20-2021 [facility] Documents [id number] CD:127 Normal [facility] Documents[facility] 10-14-2021 [facility] Documents [facility] Nurse Visit 14 day Health Appraisal Date [...] forearm Date vial opened: 09/22/2021 Lot number: [id number] Expiration date: 12/20/2022 PPD Comments: _ Inmate [...] you wish to attend AA Meetings? YES [facility] Assessment 09/28/21 14:28:00 [facility] Assessment Entered On: 09/29/2021 14:31 EST Performed [...] Yes Patient Reported Covid-19 Testing Where : [facility] Patient Reported Covid-19 Testing When : [...] : Gabriel (more content not included)... Normal [facility] Documents[facility] 07-03-2021 [facility] Documents [facility] Nurse Visit 14 day Health Appraisal PPD Results PPD Result (mm of Induration): _0.0 mm Read on: 06/28/2021 Problem List/Past Medical History Ongoing No qualifying data Historical No qualifying data Medications No active medications Allergies No Known Allergies Normal [facility] 06-28-2021 [facility] Documents [facility] Nurse Visit 14 day Health Appraisal Date [...] forearm Date vial opened: 06/18/2021 Lot number: [id number] Expiration date: 10/22 PPD Comments: _ Inmate [...] you wish to attend AA Meetings? Yes [facility] Assessment 06/26/21 16:48:00 [facility] Assessment Entered On: 06/26/2021 16:52 EDT Performed [...] active medications Allergies No Known Allergies Normal [facility] Encounters Encounter Date Encounter Type Care Provider Facility Start: 07-31-2019 End: 08-01-2019 Patient encounter procedure [facility] Facility: Payers Date Payer Category Payer Unknown [id number] 1958 Self-pay Summary Purpose Family History No [...] AUTHOR AUTHOR'S JUAN HEDRICK 11/21/2021 [facility] FOR RECORDS PERTAINING TO PATIENTS WHO [...] BE BASED ON THE PRIMARY CLINICAL RECORDS. [employer] [facility]. provides no warranty or guarantee of the accuracy or completeness of information in this document.
== END 2025-05-15 13:21 | disposition home or self-care (01) ==
PROVIDERS: Emergency Provider Emergency Medicine
DX: J01.90 Acute sinusitis, unspecified (principal); B96.89 Other specified bacterial agents as the cause of diseases classified elsewhere; R19.7 Diarrhea, unspecified
CPT/HCPCS: 99283